=== PATIENT | male | born 1955 | race Caucasian/White ===

== ENCOUNTER → 2018-05-13 08:43 | Outpatient (CLI) | payer OTHER, SELFPAY ==
[2018-05-16 12:21] LABS: AST(SGOT) 29 U/L (15-37); Alanine Aminotransfer ALT/SGPT 39 U/L (16-61); Albumin, Serum 3.6 g/dL (3.2-5.0); Alkaline Phosphatase 75 U/L (45-117); Anion Gap 8 (5-15); BUN 18 mg/dL (7-18); Calcium,Total 8.7 mg/dL (8.5-10.1); Chloride 108 mmol/L (98-107); Cholesterol 159 mg/dL (200); EST Glomerular Filtration Rate 80 mL/min (>60); Est Glom Filt Rate - Afr Amer 97 mL/min (>60); Globulin 3.6 g/dL (2.2-4.2); Glucose 92 mg/dL (74-106); High Density Lipoprotein 58 mg/dL; PSA,Total - Annual Screen 1.67 ng/mL (0.00-4.00); Potassium 4.3 mmol/L (3.5-5.1); Protein, Total 7.2 g/dL (6.4-8.2); Sodium Level 141 mmol/L (136-145); Triglycerides 84 mg/dL; Very Low Density Lipoprotein 17 mg/dL (5-40)
--- OUTSIDE RECORDS SUMMARY | 2018-07-06 10:07 | XMS RPT_ITS ---
:1955 Author Organization [facility] Care Team Providers Name Role Phone Brendon Epperson Attending Unavailable Brendon Epperson Primary Care Unavailable PROBLEMS PROBLEMS DATE TYPE CONDITION / CODE ATTENDING STATUS SOURCE 05/13/2018 Unknown Z00.00 - Brendon Epperson Active Zoë Encounter for [facility] medical Repository examination without abnormal findings / Z00.00(ICD-10) PROCEDURES PROCEDURES No Procedure Records FoundRESULTS RESULTS COMPREHENSIVE METABOLIC Collected: 05/16/2018 Status: F Source: ZOË PROFIL 9:06 AM [facility] HOSPITAL REPOSITORY TYPE CODE TESTS RESULT OUT OF RANGE REFERENCE UNITS LAB L501.0100 74-106 mg/dL Normal GLU 92 Result Comment: Please note revised GLUCOSE reference range effective 2017. LAB L501.1000 7-18 mg/dL Normal BUN 18 LAB L501.1100 0.70-1.30 mg/dL Normal CREAT,SERUM 1.00 Result Comment: The validity of the calculated GFR AND GFRAA in patients over 70 years has not been determined. Clinical correlation is essential. LAB L501.1110 >60 mL/min Normal EST GFR 80 Result Comment: Non- GFR Calc LAB L501.1115 >60 mL/min Normal EST GFR - AA 97 Result Comment: GFR Calc LAB L501.1300 10-20 RATIO Normal BUN/CRE 18.0 LAB L501.1500 6.4-8.2 g/dL T Normal PROT 7.2 LAB L501.1800 3.2-5.0 g/dL Normal ALB 3.6 LAB L501.1950 2.2-4.2 g/dL Normal GLOB 3.6 LAB L501.2000 0.9-2.4 RATIO Normal A/G 1.0 LAB L501.2200 8.5-10.1 mg/dL CA Normal 8.7 LAB L501.4100 15-37 U/L Normal AST 29 LAB L501.4305 45-117 U/L Normal ALK P 75 LAB L501.4405 16-61 U/L Normal ALT 39 LAB L501.4600 0.20-1.00 mg/dL T Normal BILI 0.80 LAB L501.5300 136-145 mmol/L NA Normal 141 LAB L501.5600 3.5-5.1 mmol/L K Normal 4.3 LAB L501.5900 98-107 mmol/L High CL 108 LAB L501.6100 21.0-32.0 mmol/L Normal CO2 25.0 LAB L501.6200 5-15 Normal GAP 8 Performed By: #### L500.4050, L500.4100, L501.9910 #### [facility] [address], [place], [id number] LIPID PROFILE Collected: 05/16/2018 Status: F Source: [place] 9:06 AM [facility] REPOSITORY TYPE CODE TESTS RESULT OUT OF RANGE REFERENCE UNITS LAB L501.4900 200 mg/dL Normal CHOL 159 Result Comment: <200 mg/dL Desirable 200-240 mg/dL Borderline >240 mg/dL High Risk LAB L501.5000 mg/dL Normal TRIG 84 Result Comment: The drugs N-Acetylcysteine and Metamizole may falsely depress this assay. Serum Triglycerides Reference Interval Normal <150 mg/dL Borderline high 150 - 199 mg/dL High 200 - 499 mg/dL Very High > or = 500 mg/dL LAB L501.6400 mg/dL Normal HDL 58 Result Comment: The drugs N-Acetylcysteine and Metamizole may falsely depress this assay. Reference Range HDL <40 mg/dL Low HDL Cholesterol HDL >or= 60 mg/dL High HDL Cholesterol LAB L501.6500 0-130 mg/dL Normal LDL 84 LAB L501.6600 5-40 mg/dL Normal VLDL 17 Performed By: #### L500.4050, L500.4100, L501.9910 #### [facility] [address] [facility]. [place], [place], [id number] PSA,TOTAL - ANNUAL Collected: 05/16/2018 Status: F Source: ZOË SCREEN 9:06 AM [facility] REPOSITORY TYPE CODE TESTS RESULT OUT OF RANGE REFERENCE UNITS LAB L501.9910 0.00-4.00 ng/mL Normal PSA,TOT 1.67 SCREEN Result Comment: This test was performed using the TPSA assay method for the [employer] chemistry system. Values obtained with different assay methods cannot be used interchangably. When changing PSA assays in the course of monitoring a patient, additional sequential testing should be carried out to confirm baseline values. Performed By: #### L500.4050, L500.4100, L501.9910 #### [facility] [address] [place], [address] ALLERGIES ALLERGIES DATE TYPE / CODE NAME / CODE REACTION SEVERITY SOURCE 01/22/2017 Drug No Known Unknown [facility] Allergy/4160 Allergies/F00 Hospital [address](SNOMED [id number](RXNOR Repository CT) M) ENCOUNTERS ENCOUNTERS ADMIT/DISCHARGE ACCOUNT ADMITTING ENCOUNTER LOCATION SOURCE NUMBER CLASS 05/13/2018 [id number] Ambulatory Zoë Zoë 9 [facility] ing:BFHLAB Repository PAYERS PAYERS ENCOUNTER GUARANTOR PAYER SUBSCRIBER SOURCE 05/13/2018 Elliott Chauhan Primary Elliott Moralesoster [id number] Insurance:[employer]ULTCAREPol [facility]: [id number] [address] [id number] Repository [place], [place] Date:[id number] [address]Hxz: [phone], [place] [phone] ([place]) [phone]: 05/13/2018 Secondary NOT GIVENUNK [place] Insurance:SELF PAY [facility] Number: Effective Repository Date:2018-05-13
== END ==
PROVIDERS: Family Provider Family Medicine; PCP Family Medicine; Visit Provider Family Medicine
DX: Z00.00 Encounter for general adult medical examination without abnormal findings (principal)
CPT/HCPCS: 36415; 80053; 80061; 84153; G0103

== ENCOUNTER → 2018-08-26 11:54 | Outpatient (CLI) | payer OTHER, SELFPAY ==
[2017-02-21 16:17] VITALS: BMI 26.6
--- NOTE | 2018-08-26 11:58 | RAD_ITS ---
STUDY: X-RAY - ABDOMEN/PELVIS REASON FOR EXAM: Male, 63 years old. Left upper quadrant pain x 2 weeks. TECHNIQUE: Two AP supine views of the abdomen and pelvis. COMPARISON: None. FINDINGS: Normal visualized lung bases. There is a nonspecific pattern of gas in nondistended segments of small bowel and colon. Gas and fecal material noted in the rectal vault. There is no demonstrated free abdominal air. The visualized liver, spleen and kidneys are grossly normal in size and morphology. Clusters of metal coil densities suggesting prior herniorrhaphy project over the periphery of the right lower quadrant. Clusters of surgical clips that may be related to prior vasectomy project over the base of the scrotum. There are diffuse degenerative changes of the visualized spine and a thoracolumbar S-shaped scoliosis. RAD/Abdomen Single View IMPRESSION: 1. Nonspecific bowel gas pattern. No free gas. 2. Possible prior right inguinal herniorrhaphy and bilateral vasectomies. Correlation with surgical history needed. Electronically Signed: Sohan Stone MD at 16:14 EDT , Service support ,
[2018-08-26 12:01] LABS: Bacteria 0 SEEN /hpf (None Seen); Mucous, Urine 0 SEEN /hpf (<or=2+); Red Blood Cells-Urine 0 SEEN /hpf (0-5); Squamous Epithelial Cells - UA 0 SEEN /hpf (0-5); White Blood Cells 0 SEEN /hpf (0-5)
[2018-08-26 13:56] LABS: Color, Urine Yellow (Yellow); Glucose, Dipstick Normal (Normal); Ketone-Dipstick Negative (Negative); Leukocyte Esterase-Dipstick Negative /ul (Negative); Nitrite-Dipstick Negative (Negative); Occult Blood-Urine Negative /ul (Negative); Protein-Dipstick Negative (Negative); Specific Gravity, Urine 1.015 (1.002-1.030); Urine Bilirubin Dipstick Negative (Negative); Urine Clarity Clear (Clear); Urine Urobilinogen Normal (Normal)
[2018-08-26 14:02] LABS: Absolute Lymphocyte Count 2.02 X10^3/ul (0.83-4.51); Absolute Neutrophil Count 4.5 X10^3/uL (2.0-7.7); Basophil# 0.03 X10^3/uL; Basophil% 0.4 % (0-1); Eosinophil# 0.22 X10^3/uL; Eosinophils% 3.1 % (0-5); Hematocrit 45.4 % (40-54); Hemoglobin 15.3 g/dl (13.0-16.5); Lymphocyte # 2.02 X10^3/ul (4.0); Lymphocyte % 28.3 % (19-41); Mean Corp Hgb Conc 33.7 g/gl (32-36); Mean Corpuscular Hgb 30.8 pg (27.0-32.0); Mean Corpuscular Volume 91.5 fL (80-94); Mean Platelet Vol. 9.3 fl (6.2-12.0); Monocyte# 0.39 X10^3/uL; Monocyte% 5.5 % (0-10); Neutrophil # 4.47 X10^3/uL (2.7-7.7); Neutrophil % 62.6 % (47-70); Platelet Count 273 K/mm3 (150-450); RBC Distribution Width CV 12.4 % (11.6-14.6); RBC Distribution Width SD 40.7 fl (35.1-43.9); Red Blood Count 4.96 M/mm3 (4.6-6.2); White Blood Count 7.1 K/mm3 (4.4-11.0)
[2018-08-26 14:06] LABS: POSITIVE COUNT NO; POSITIVE DIFFERENTIAL NO; POSITIVE MORPHOLOGY NO
[2018-08-26 14:15] LABS: ALB/GLOB Ratio 1.1 RATIO (0.9-2.4); AST(SGOT) 24 U/L (15-37); Alanine Aminotransfer ALT/SGPT 30 U/L (16-61); Albumin, Serum 3.9 g/dL (3.2-5.0); Alkaline Phosphatase 73 U/L (45-117); Anion Gap 6 (5-15); BUN 23 mg/dL (7-18); BUN/Creat Ratio 23.2 RATIO (10-20); CRP < 2.90 mg/L (0.0-3.0); Calcium,Total 8.8 mg/dL (8.5-10.1); Chloride 107 mmol/L (98-107); Creatinine, Serum 0.99 mg/dL (0.70-1.30); EST Glomerular Filtration Rate 81 mL/min (>60); Est Glom Filt Rate - Afr Amer 98 mL/min (>60); Globulin 3.5 g/dL (2.2-4.2); Glucose 97 mg/dL (74-106); Potassium 4.2 mmol/L (3.5-5.1); Protein, Total 7.4 g/dL (6.4-8.2); Sodium Level 140 mmol/L (136-145)
== END ==
PROVIDERS: Family Provider Family Medicine; PCP Family Medicine; Referring Provider Family Medicine; Visit Provider Family Medicine
DX: R10.12 Left upper quadrant pain (principal)
CPT/HCPCS: 36415; 74018; 80053; 81001; 85025; 86140

== ENCOUNTER → 2019-05-28 08:30 | Outpatient (CLI) | payer OTHER, SELFPAY ==
[2019-05-28 13:03] LABS: Cholesterol 128 mg/dL (200); High Density Lipoprotein 51 mg/dL; PSA,Total - Annual Screen 2.02 ng/mL (0.00-4.00); Triglycerides 69 mg/dL; Very Low Density Lipoprotein 14 mg/dL (5-40)
== END ==
PROVIDERS: Family Provider Family Medicine; PCP Family Medicine; Visit Provider Family Medicine
DX: Z00.00 Encounter for general adult medical examination without abnormal findings (principal); Z12.5 Encounter for screening for malignant neoplasm of prostate
CPT/HCPCS: 36415; 80061; 84153; G0103

== ENCOUNTER → 2020-04-21 09:46 | Outpatient (CLI) | payer MEDICARE, SELFPAY ==
[2020-04-21 12:15] LABS: Absolute Lymphocyte Count 1.57 X10^3/uL (0.83-4.51); Absolute Neutrophil Count 3.9 X10^3/uL (2.0-7.7); Basophil# 0.04 X10^3/uL; Basophil% 0.7 % (0-1); Eosinophil# 0.23 X10^3/uL; Eosinophils% 3.8 % (0-5); Hematocrit 41.9 % (40-54); Hemoglobin 13.8 g/dL (13.0-16.5); Lymphocyte # 1.57 X10^3/ul (4.0); Mean Corp Hgb Conc 32.9 g/dL (32-36); Mean Corpuscular Hgb 30.9 pg (27.0-32.0); Mean Corpuscular Volume 93.7 fL (80-94); Mean Platelet Vol. 9.8 fl (6.2-12.0); Monocyte# 0.34 X10^3/uL; Monocyte% 5.6 % (0-10); NRBC Flagged by Analyzer 0 % (0-5); Neutrophil # 3.86 X10^3/uL (2.7-7.7); Neutrophil % 63.7 % (47-70); Platelet Count 229 K/mm3 (150-450); RBC Distribution Width CV 12.8 % (11.6-14.6); RBC Distribution Width SD 43.8 fl (35.1-43.9); Red Blood Count 4.47 M/mm3 (4.6-6.2); White Blood Count 6.1 K/mm3 (4.4-11.0)
[2020-04-21 13:02] LABS: ALB/GLOB Ratio 1.1 RATIO (0.9-2.4); AST(SGOT) 33 U/L (15-37); Alanine Aminotransfer ALT/SGPT 35 U/L (16-61); Albumin, Serum 3.7 g/dL (3.2-5.0); Alkaline Phosphatase 72 U/L (45-117); Anion Gap 6 (5-15); BUN 17 mg/dL (7-18); BUN/Creat Ratio 19.6 RATIO (10-20); Calcium,Total 8.6 mg/dL (8.5-10.1); Chloride 107 mmol/L (98-107); Creatinine, Serum 0.87 mg/dL (0.70-1.30); EST Glomerular Filtration Rate 94 mL/min (>60); Est Glom Filt Rate - Afr Amer 114 mL/min (>60); Globulin 3.3 g/dL (2.2-4.2); Glucose 91 mg/dL (74-106); PSA,Total - Annual Screen 1.87 ng/mL (0.00-4.00); Potassium 4.4 mmol/L (3.5-5.1); Sodium Level 140 mmol/L (136-145)
== END ==
PROVIDERS: PCP Family Medicine; Visit Provider Family Medicine
DX: Z00.01 Encounter for general adult medical examination with abnormal findings (principal); Z12.5 Encounter for screening for malignant neoplasm of prostate; R10.2 Pelvic and perineal pain
CPT/HCPCS: 36415; 80053; 84153; 85025; G0103

== ENCOUNTER 2022-04-12 22:42 | Emergency (ER) | payer MEDICARE, SELFPAY ==
[2022-04-12 22:42] VITALS: BP 128/101; PULSE 70; RESP 15; TEMP 36.6; O2SAT 93; BMI 25.1
--- NOTE | 2022-04-12 23:17 | EX.ED.GUMALE ---
HPI History of Present Illness Chief Complaint: Complaint Informant: patient Pain Onset: Today (Suprapubic discomfort like bladder is full) Context: Gradual Onset Timing: Continuous Current Severity: Moderate Maximum Severity: Moderate Narrative Narrative: Patient had a laparoscopic herniorrhaphy today, he has been unable to urinate since the surgery despite drinking plenty of fluid. Had this happen after his surgery in the past. He denies any hematuria or being on any anticoagulants. [facility] Medical History (Updated 04/13/22 @ 00:[address] Orestes Johnson MD) Hyperlipidemia Home Medications atorvastatin 20 mg tablet 20 mg PO QHS 01/22/17 [History Last Taken Unknown] multivitamin (Daily Multiple tablet) 1 ea PO DAILY 01/22/17 [History Last Taken Unknown] acetaminophen 500 mg tablet 1,000 mg PO Q8 ##90 02/22/17 [Rx Last Taken Unknown] aspirin 325 mg tablet 325 mg PO BIDCM ##30 02/22/17 [Rx Last Taken Unknown] famotidine 20 mg tablet 20 mg PO DAILY ##30 02/22/17 [Rx Last Taken Unknown] oxycodone 5 mg tablet 5 - 10 mg PO Q4H PRN PRN Pain ##56 02/22/17 [Rx Last Taken Unknown] sennosides 8.6 mg-docusate sodium 50 mg tablet (Stool Softener-Stimulant Laxative) 2 tab PO BID ##20 02/22/17 [Rx Last Taken Unknown] Allergy/AdvReac Type Severity Reaction Status Date / Time No Known Allergies Allergy Verified 04/12/22 22:45 Surgical History S/P herniorrhaphy Social History Smoking Status: Never smoker ROS ROS ED Constitutional Constitutional ED: Denies chills or fever(s) Eyes Eyes: Denies change in vision or diplopia ENT ENT ED: Denies rhinorrhea or sore throat Cardiovascular Cardiovascular: Denies chest pain or palpitations Respiratory/Chest Respiratory/Chest: Denies cough or dyspnea Gastrointestinal Gastrointestinal: Reports abdominal pain; Denies diarrhea, nausea or vomiting Genitourinary Genitourinary ED: Reports as per HPI and other Details: Urinary retention ; Denies dysuria or hematuria Musculoskeletal Musculoskeletal: Denies back pain or neck pain Integumentary Denies abscess or rash Neurologic Neurologic: Denies headache(s), paresthesias or weakness Psychiatric Psychiatric: Denies anxiety or suicidal thoughts EXAM Physical Exam Const Vital Signs: 04/12/22 22:42 Temperature 97.9 F Temperature Source Temporal Pulse Rate 70 Respiratory Rate 15 Blood Pressure 128/101 H Blood Pressure Mean 110 Pulse Ox 93 Oxygen Delivery Method Room Air Positive well nourished and well developed General Appearance ED: well developed and NAD HEENT Reports moist mucous membranes normocephalic and atraumatic Eyes PERRL and EOMs intact bilaterally Neck full ROM and supple Resp normal respiratory effort GI GI Narrative: Suprapubic tenderness mild with associated localized distention. Postoperative laparoscopic dressings in place, no signs of infection around them, minimal postoperative tenderness. Auscultation: normoactive bowel sounds Palpation: soft no CVA tenderness Narrative: Normal penis, no blood at the meatus. Back/Spine no CVA tenderness General Back: other FROM Extremity normal to inspection General Extremety ED: Negative for edema General Extremity: Negative for edema Neuro oriented x3, CN's II-XII intact bilaterally and no sensory deficits noted Sensorium / Orientation: awake and alert Motor Exam: strength 5/5 throughout Skin no rashes or lesions noted and no wounds MDM MDM MDM Narrative Medical decision making narrative: [place] catheter was placed, patient had about a liter of transparent yellow urine, no blood, felt much better on reevaluation. Patient was amenable to keeping this in with a leg bag and following up with his surgeon. Discharge Plan Triage Chief Complaint: Complaint ED Provider: Orestes Johnson Dx/Rx/DC Orders Clinical Impression: Postoperative urinary retention Instructions: ED Urinary Retention, Male Prescriptions: No Action multivitamin [Daily Multiple] 1 EACH tablet 1 ea PO DAILY atorvastatin 20 MG tablet 20 mg PO QHS aspirin 325 MG tablet 325 mg PO BIDCM Qty: 30 0RF sennosides-docusate sodium [Stool Softener-Stimulant Laxat] 1 TABLET tablet 2 tab PO BID Qty: 20 0RF Rx Instructions: Take until first bowel movement, then as needed acetaminophen 500 MG tablet 1,000 mg PO Q8 Qty: 90 0RF famotidine 20 MG tablet 20 mg PO DAILY Qty: 30 0RF oxycodone 5 MG tablet 5 - 10 mg PO Q4H PRN PRN (Reason: Pain) Qty: 56 0RF Primary Care Provider: Brendon Epperson Referrals: Arnie Ford MD [Med Staff - Active Staff] - 2 Days (Call for appointment for follow-up, unless he refers you to someone else for this issue) Brendon Epperson DO [Primary Care Provider] - Disposition Disposition: Home, Self Care
[2022-04-12] MEDS: Lidocaine Jelly 2% 20 ML Syringe (URO-JET) 1 APPLIC TOPICAL (23:39)
== END 2022-04-13 02:10 | disposition home or self-care (01) ==
PROVIDERS: Emergency Provider Emergency Medicine; PCP Family Medicine; Visit Provider Emergency Medicine
DX: R33.8 Other retention of urine (principal); E78.5 Hyperlipidemia, unspecified; Z98.890 Other specified postprocedural states
CPT/HCPCS: 51702; 99283

== ENCOUNTER → 2022-06-30 | Outpatient (CLI) | payer MEDICARE, SELFPAY ==
[2022-06-30 18:18] LABS: Absolute Lymphocyte Count 1.91 X10^3/uL (0.83-4.51); Absolute Neutrophil Count 4.3 X10^3/uL (2.0-7.7); Basophil# 0.05 X10^3/uL; Basophil% 0.7 % (0-1); Eosinophil# 0.24 X10^3/uL; Eosinophils% 3.5 % (0-5); Hematocrit 44.6 % (40-54); Lymphocyte # 1.91 X10^3/ul (0.83-4.51); Lymphocyte % 27.5 % (19-41); Mean Corp Hgb Conc 33.6 g/dL (32-36); Mean Corpuscular Hgb 31.1 pg (27.0-32.0); Mean Corpuscular Volume 92.3 fL (80-94); Mean Platelet Vol. 9.3 fl (6.2-12.0); Monocyte# 0.47 X10^3/uL; Monocyte% 6.8 % (0-10); NRBC Flagged by Analyzer 0 % (0-5); Neutrophil # 4.26 X10^3/uL (2.7-7.7); Neutrophil % 61.4 % (47-70); Platelet Count 252 K/mm3 (150-450); RBC Distribution Width SD 40.8 fl (35.1-43.9); Red Blood Count 4.83 M/mm3 (4.6-6.2); White Blood Count 6.9 K/mm3 (4.4-11.0)
[2022-06-30 18:32] LABS: ALB/GLOB Ratio 1.2 RATIO (0.9-2.4); AST(SGOT) 26 U/L (15-37); Alanine Aminotransfer ALT/SGPT 37 U/L (16-61); Albumin, Serum 3.8 g/dL (3.2-5.0); Alkaline Phosphatase 66 U/L (45-117); Anion Gap 9 (5-15); BUN 20 mg/dL (7-18); Chloride 105 mmol/L (98-107); Cholesterol 134 mg/dL (200); Creatinine, Serum 0.95 mg/dL (0.70-1.30); EST Glomerular Filtration Rate 84 mL/min (>60); Est Glom Filt Rate - Afr Amer 101 mL/min (>60); Globulin 3.3 g/dL (2.2-4.2); Glucose 86 mg/dL (74-106); High Density Lipoprotein 75 mg/dL; Potassium 4.3 mmol/L (3.5-5.1); Protein, Total 7.1 g/dL (6.4-8.2); Sodium Level 141 mmol/L (136-145); Triglycerides 41 mg/dL; Very Low Density Lipoprotein 8 mg/dL (5-40)
== END | disposition home or self-care (01) ==
LOC: BFHLAB 14:58
PROVIDERS: PCP Family Medicine; Visit Provider Family Medicine
DX: Z00.00 Encounter for general adult medical examination without abnormal findings (principal); Z12.5 Encounter for screening for malignant neoplasm of prostate; E78.5 Hyperlipidemia, unspecified; K59.02 Outlet dysfunction constipation
CPT/HCPCS: 36415; 80053; 80061; 84153; 85025; G0103

== ENCOUNTER → 2023-08-07 | Outpatient (CLI) | payer MEDICARE, SELFPAY ==
[2023-08-07 15:30] LABS: Absolute Neutrophil Count 4.1 X10^3/uL (2.0-7.7); Basophil# 0.03 X10^3/uL; Basophil% 0.5 % (0-1); Eosinophil# 0.18 X10^3/uL; Eosinophils% 2.8 % (0-5); Hematocrit 42.2 % (40-54); Hemoglobin 14.2 g/dL (13.0-16.5); Lymphocyte % 27.6 % (19-41); Mean Corp Hgb Conc 33.6 g/dL (32-36); Mean Corpuscular Hgb 31.4 pg (27.0-32.0); Mean Corpuscular Volume 93.4 fL (80-94); Mean Platelet Vol. 9.5 fl (6.2-12.0); Monocyte# 0.44 X10^3/uL; Monocyte% 6.7 % (0-10); NRBC Flagged by Analyzer 0 % (0-5); Neutrophil # 4.07 X10^3/uL (2.7-7.7); Neutrophil % 62.2 % (47-70); Platelet Count 233 K/mm3 (150-450); RBC Distribution Width CV 12.2 % (11.6-14.6); RBC Distribution Width SD 41.8 fl (35.1-43.9); Red Blood Count 4.52 M/mm3 (4.6-6.2); White Blood Count 6.5 K/mm3 (4.4-11.0)
[2023-08-07 16:41] LABS: ALB/GLOB Ratio 1.2 RATIO (0.9-2.4); AST(SGOT) 26 U/L (15-37); Alanine Aminotransfer ALT/SGPT 24 U/L (16-61); Albumin, Serum 3.8 g/dL (3.2-5.0); Alkaline Phosphatase 67 U/L (45-117); Anion Gap 6 (5-15); BUN 16 mg/dL (7-18); BUN/Creat Ratio 17.8 RATIO (10-20); Calcium,Total 9.1 mg/dL (8.5-10.1); Chloride 109 mmol/L (98-107); Cholesterol 125 mg/dL (200); EST Glomerular Filtration Rate 89 mL/min (>60); Est Glom Filt Rate - Afr Amer 108 mL/min (>60); Globulin 3.1 g/dL (2.2-4.2); Glucose 91 mg/dL (74-106); High Density Lipoprotein 64 mg/dL; PSA,Total - Annual Screen 3.09 ng/mL (0.00-4.00); Potassium 4.2 mmol/L (3.5-5.1); Protein, Total 6.9 g/dL (6.4-8.2); Sodium Level 141 mmol/L (136-145); Triglycerides 48 mg/dL; Very Low Density Lipoprotein 10 mg/dL (5-40)
--- OUTSIDE RECORDS SUMMARY | 2023-08-07 22:26 | XMS RPT_ITS | CCD ---
Author Name Unknown Address [address] [place] [address] Organization [facility] Care Team Providers Care Rectifying Operator Name Role Phone KIET JEFFREY Attending Unavailable PHYSICIAN, NOT RECORDED Primary Care Unavaila ble Zhou FLORES, Rajiv A Primary Care Provider ARNIE FORD Admitting Unavailable ARNIE FORD Attending Unavailable ZHOU, RAJIV A Primary Care Unavailable SHEKHAR METZGER Attending Unavailable ZHOU, RAJIV A Primary Care Unavailable ZHOU, RAJIV A Referring Unavailable ARNIE FORD Attending Unavailable CELINE GOODWIN Primary Care Unavailable SHEKHAR METZGER Attending Unavailable ZHOU, RAJIV A Primary Care Unavailable ARNIE FORD Referring Unavailable ZHOU, RAJIV A Primary Care Unavailable ARNIE FORD Referring Unavailable ARNIE FORD Attending Unavailable ZHOU, RAJIV A Primary Care Unavailable MARKIE BARONE Referring Unavailable Pcp, No Primary Care Provider Unavailabl e Zhou FLORES, Rajiv A Primary Care Provider Medications Completed/Discontinued Medications Medication Drug Class(es) Dates Sig (Normalized) Sig (Original) acetaminophen 325 mg / HYDROcodone bitartrate 5 mg oral tablet (1 source) Opioid Agonist Start: 04-12-2022 take 1 tablet by mouth every six hours as needed for pain HYDROcodone-aceta minophen (NORCO) 5-325 mg per tablet Indications: Left inguinal hernia Take 1 tablet by mouth every 6 hours as needed for pain. 20 tablet 0 04/12/2022 Active Problems Problem Classification Problem Date Documented Date Episodic/Chronic Abdominal hernia (1 source) Unilateral inguinal hernia, without obstruction or gangrene, not specified as recurrent; Translations: [Left inguinal hernia] Onset: 04-12-2022 Episodic Abdominal pain (2 sources) Epigastric pain; Translations: [Epigastric pain] Onset: 09-27-2018 Episodic Disorders of lipid metabolism (4 sources) Mixed hyperlipidemia; Translations: [Mixed hyperlipidemia] Onset: 04-05-2022 Chronic Esophageal disorders (4 sources) Gastroesophageal reflux disease; Translations: [Gastro-esophageal reflux disease without esophagitis] Onset: 04-05-2022 Chronic Other aftercare (1 source) Follow-up status; Translations: [Encounter for other specified aftercare] Episodic Results Test Name Value Interpretation Reference Range Facil ity Vital Signs Date Time Vital Sign Value Performing Clinician Faci lity 04-05-2022 10:35-0400 Body height 176.5 cm Pacc 1 Work Phone: [facility] 04-05-2022 10:35-0400 Body temperature 97.9 [degF] Pacc 1 Work Phone: [facility] 04-05-2022 10:35-0400 Body weight 83.01 kg Pacc 1 Work Phone: [facility] 04-05-2022 10:35-0400 Diastolic blood pressure 78 mm[Hg] Pacc 1 Work Phone: [facility] 04-05-2022 10:35-0400 Heart rate 79 /min Pacc 1 Work Phone: [facility] 04-05-2022 10:35-0400 Respiratory rate 16 /min Pacc 1 Work Phone: [facility] 04-05-2022 10:35-0400 SaO2% (BldA) [Mass fraction] 98 % Pacc 1 Work Phone: [facility] 04-05-2022 10:35-0400 Systolic blood pressure 122 mm[Hg] Pacc 1 Work Phone: [facility] Encounters Encounter Date Encounter Type Care Provider Facility Start: 04-18-2022 End: 04-18-2022 ambulatory SHEKHAR METZGER Facility:[facility] Start: 04-14-2022 End: 04-14-2022 ambulatory RAJIV EPPERSON Facility:[facility] Start: 04-14-2022 End: 04-14-2022 Patient encounter procedure Arnie Ford MD Work Phone: General Surgery Plan of Treatment Date Care Activity Detail Author Start: 04-05-2025 DIABETES SCREEN DIABETES SCREEN [facility] Start: 02-09-2022 Influenza vaccination INFLUENZA (#1) [facility] Start: 06-11-2021 ADVANCE DIRECTIVE DISCUSSION ADVANCE DIRECTIVE DISCUSSION [facility] Start: 06-11-2021 DEPRESSION ASSESSMENT DEPRESSION ASS ESSMENT [facility] Start: 06-05-2021 COVID-19 VACCINE (4 - Booster for Moderna series) COVID-19 VACCINE (4 - Booster for Moderna series) [facility] Start: 2020 PNEUMOCOCCAL: 65+ (1 - PCV) PNEUMOCOCCAL: 65+ (1 - PCV) [facility] Start: 2010 PROSTATE CANCER SCRE ENING DISCUSSION PROSTATE CANCER SCREENING DISCUSSION [facility] Start: 2005 SHINGRIX VACCINE (1 of 2) SHINGRIX V ACCINE (1 of 2) [facility] Start: 2000 COLOGUARD (FIT-DNA) COLOGUARD (FIT-D NA) [facility] Start: 2000 Colonoscopy COLONOSCOPY [facility] Start: 2000 COLORECTAL CANCER SCREENING COLORECTAL CANCER SCREENING [facility] Start: [address] COLONOGRAPHY [facility] Start: 2000 FECAL OCCULT BLOOD FECAL OCCULT BLOO D [facility] Start: 2000 SIGMOIDOSCOPY SIGMOIDOSCOPY [facility] Start: 1990 LIPID SCREEN LIPID SCREEN [facility] Start: 1974 Urine microalbumin profile DTAP,TDAP ,TD (1 - Tdap) [facility] Start: 1973 HEPATITIS C SCREENING HEPATITIS C SC INDYNING [facility] Start: 1955 COVID-19 VACCINE (#1) COVID-19 VACCI NE (#1) [facility] Payers Date Payer Category Payer Medicare [facility] AARP MEDICAR E [facility] AAR MEDICARE O [id number] 2021-Present [phone] [address] [address] [place] [address] O [id number] 2021 Medicare [id number] 2018 Unknown [id number] 1955 Unknown [id number] Social History Date Type Detail Facility Start: 12-20-2021 End: 03-31-2022 Tobacco smoking status NHIS Never smoked tobacco [facility] Start: 12-20-2021 End: 03-31-2022 Tobacco use and exposure Smokeless tobacco non-user [facility] Start: 12-20-2021 End: 04-05-2022 Alcohol intake Current non-drinker of alcohol (finding) [facility] Start: 1955 Sex Assigned At Not on file C [facility] Start: 03-26-2022 End: 04-12-2022 Exposure to SARS-CoV-2 (event) Not sure [facility] Medical Equipment Procedure Code Equipment Code Equipment Origin al Text Equipment Identifier Dates Mesh Progrip Boni Pet [id number] Surgical Self Fixate Flat Sheet Hernia Sterile - [id number] Start: 04-12-2022 Clinical Notes 12-20-2021 to 04-18-2022 Arnie Ford MD - 04/18/2022 10:29 AM EST Note Date & Type Note Facility 04-18-2022 Note HNO ID: [id number] Author: Arnie Ford MD Service: ? Author Type: Physician Type: Progress Notes Filed: 04/18/2022 10:31 AM Note Text: Subjective: Patient is status post a laparoscopic left inguinal hernia back in 04/12/2022. He went into urinary retention went to the emergency department subsequently had Noyola catheter placed and presents today just for recheck. Subjective:There were no vitals taken for this visit. Catheters in place dressings are dry I do not feel any large hematoma. Assessment: Aftercare Plan: Patient has had catheters in the past he is going to cut his catheter and remove it this coming Sunday. [facility] 04-18-2022 Note HNO ID: [id number] Author: Shekhar Metzger PA-C Service: ? Author Type: Physician Operating Room Technician Type: Progress Notes Filed: 04/18/2022 2:13 PM Note Text: FOLLOW UP VISIT - HERNIA NAME: Elliott Robin [facility] NO.: [id number] DATE OF SERVICE: 04/18/2022 : 1955 REFERRING PHYSICIAN: Rajiv Epperson DO Elliott is a patient I am following with Dr. Ford for a left inguinal hernia. Dr. Ford performed a laparoscopic left inguinal hernia repair with mesh on 04/12/22. The patient did experience post-op urinary retention and required catheter placement, which has since been removed. He currently notes no major complaints. his appetite has been good. he denies fever, chills or abdominal pain. he does note some minimal incisional discomfort. he notes no bulges at the operative site VITALS: Weight 82.1 kg (181 lb). General: patient is alert, cooperative, pleasant and in no acute distress On examination, the abdomen is benign. The incisions are healing well without signs of infection or inflammation. There are no signs of recurrent hernia formation. Assessment IMPRESSION: status post laparoscopic left inguinal hernia repair with mesh PLAN: If the patient notes any problems, he should contact me immediately. he may return to his regular activities as tolerated, with the exception of no lifting greater than 20 pounds for the next 7 weeks. If patient feels the urge to cough or sneeze, they should brace against the repair site with their hands or a pillow. Diagnoses: (Z98.890, Z87.19) S/P hernia repair (primary encounter diagnosis) (R33.9) Urinary retention Return to Clinic: The patient is instructed to follow-up with me as needed. Patient verbalized understanding of all above and agreed with the plan. Shekhar Metzger PA-C [facility] 04-18-2022 History of Present illness Narrative Subjective: Patient is status post a laparoscopic left inguinal hernia back in 04/12/2022. He went into urinary retention went to the emergency department subsequently had Noyola catheter placed and presents today just for recheck. Subjective:There were no vitals taken for this visit. Catheters in place dressings are dry I do not feel any large hematoma. Assessment: Aftercare Plan: Patient has had catheters in the past he is going to cut his catheter and remove it this coming Sunday. documented in this encounter [facility] 04-12-2022 Note HNO ID: [id number] Author: Eugenio Calero RN Service: Nursing Author Type: Registered Nurse Type: Nursing Progress Note Filed: 04/12/2022 12:54 PM Note Text: Up to bathroom , gait steady , voided q/s returned to [facility] documented as of this encounter (statuses as of 04/18/2022) [facility]11-02-2022 History of Past illness Narrative* Problem Noted Date Resolved Date Left inguinal hernia 04/12/2022 04/12/2022 documented as of this encounter (statuses as of 04/30/2022) [facility]11-02-2022 NoteHNO ID: [id number] Author: ALY Allison Service: Anesthesiology Author Type: Student Type: Anesthesia Procedure Notes Filed: 04/12/2022 9:37 AM Note Text: ANESTHESIOLOGY PROCEDURE NOTE Airway General Information Procedure Start Time/Medication Administration: 04/12/2022 9:31 AM Patient location during procedure: OR Timeout Performed Pre-procedure: timeout performed Consent Obtained: Yes Patient identity confirmed: arm band and patient Staffing SRNA: ALY Allison Performed by: ALY Indications and Patient Condition Indications for airway management: anesthesia Preoxygenated: yes anesthesia circuit Patient position: sniffing Method: sleep Difficult Mask: No Final Airway Details Final airway type: endotracheal airway Final Endotracheal Airway: ETT Cuffed: yes Successful intubation technique: direct laryngoscopy Endotracheal tube insertion site: oral Blade: Aziza Blade size: #4 ETT size (mm): 7.5 Placement verified by: capnometry Cormack-Lehane Classification: grade I - full view of glottis Number of attempts at approach: 1 Airway not difficult SIGNATURE: ALY Allison PATIENT NAME: Elliott Robin DATE: April 12, 2022 TIME: 9:36 AM CSN: [id number] Instructions* Patient Instructions* Markie Barone APRN.STOCK CONTROLLER - 04/05/2022 10:42 AM EDT PATIENT PREOPERATIVE INSTRUCTIONS No ref. provider found has scheduled you for your procedure at this surgery center: [facility]: [phone] -- [address] [facility] [address]. Please read below carefully for your personalized instructions. Dietary Restrictions: - No solid food after midnight. - You may have 12 ounces of clear liquids (water, clear juices such as apple juice or gatorade, carbonated beverages, clear tea, black coffee, jello) until 2 hours before scheduled arrival at facility. No red/purple coloring and no creamer/sugar Medications: Unless instructed differently below, stay on all of your medications until your surgery. Approved medications to take the morning of surgery with a sip of water: Atorvastatin, Omeprazole If you start any new medications after today's visit, please contact the surgeon's office. Blood Thinning Medications: - Stop NSAIDS (Ibuprofen, Advil, Aleve, Motrin, Celebrex, Mobic, etc.) 7 days before surgery, as directed by your surgeon. - Stop Aspirin 7 days before surgery, as directed by your surgeon. - Stop Vitamin E, ALL multi-vitamins, herbals and dietary supplements 7 days before surgery. - You may take Tylenol (Acetaminophen) or any of your pain medications that do not contain aspirin or NSAIDS as needed. Important Reminders: - If you use CPAP/BIPAP, bring the machine with you to the surgery center. - If you are prescribed inhalers for breathing, continue using them. - Candy, mints, and tobacco products are NOT permitted the morning of surgery. - Hearing aids, dentures and glasses may be worn the morning of surgery. - NO jewelry, body piercings, makeup, hairpins or contacts are to be worn the day of surgery. If you develop symptoms such as a fever, cold, or flu, or have other changes to your health within TWO DAYS of scheduled surgery or the morning of surgery, please contact the surgery center above. Personal Belongings: -Please have photo ID and insurance cards. -If you do not have a copy of advance directives on file with us, please bring a copy with you on the day of surgery. - Leave ALL valuables and money at home or with family members. For Outpatient Procedures: - YOU MUST HAVE A RESPONSIBLE PRESIDENT TAKE YOU HOME. A BENEFITS CONSULTING ANALYST OR AIRCRAFT CAPTAIN CANNOT BE MADE A RESPONSIBLE PRESIDENT. - We recommend that a responsible person stays with you overnight to take care of you. - You cannot stay in a hotel alone after outpatient surgery. You will not be permitted to have yoursurgery, if you do not have someone to take care of you. Arrival Time for Surgery: - The Surgery Center or hospital where you are having surgery will call the afternoon before surgery (or Sunday for Sunday surgery) with a scheduled arrival time. - If you have not heard by 4 pm, please contact the surgery center above. Please be aware that emergency situations arise, which may delay or change your surgical time. If this happens, we will notify you as soon as possible and regret any inconvenience. If you already have an Advance Directive, please fax a copy to [phone] or email to for it to be added to your chart. If you do not have an Advance Directive, you can find the appropriate form and more information at [email or web address]. We recommend that youcomplete the Advance Directive form found on the website and bring it with you the day of your surgery. It can be witnessed and scanned into your chart that day. Markie Barone APRN.CNP [facility] History and physical note * Markie Barone APRN.CNP - 04/05/2022 10:41 AM EDT HISTORY AND PHYSICAL EXAMINATION SERVICE DATE: 04/05/2022 SERVICE TIME: 10:56 AM PRIMARY CARE PHYSICIAN: Rajiv Epperson DO REASON FOR VISIT: Elliott Robin is a 67 year old male who is scheduled for Procedure(s): LAPAROSCOPY SURGICAL REPAIR INITIAL INGUINAL HERNIA W/ MESH (Left) at the request of @[email or web address]@for consultation. My final recommendation will be communicated back to the requesting physician by way of shared medical record or letter. Subjective The patient has the following: ACTIVE PROBLEM LIST Gerd (Gastroesophageal Reflux Disease) Mixed Hyperlipidemia COVID-19 Immunization Status Overdue - COVID-19 VACCINE (1) Overdue - never done No completion, postpone, frequency change, or communication history exists for this topic. CHIEF COMPLAINT: Pre-op exam HPI: RADHA is a 67 yo seen for PAC due to scheduled above surgery because of LIH 03/31/2022 Shekhar Metzger PA-C HPI: Elliott is a 67 year old male I am following with Dr. Ford for left inguinal hernia. Patientwas evaluated by Dr. Ford on 12/20/21. Per office note at that time: Elliott is a 66 year old male with a complaint of a bulge in his left inguinal region. The patient notes discomfort in this area with lifting and straining. The symptoms have maintained, over the pastfew month. The patient notes no symptoms of bowel obstruction and denies nausea or vomiting. The patient was seen by his primary care physician who felt the patient has a hernia. Elliott was referred for evaluation and treatment. The patient is being seen by me today at the request of Dr. Epperson for my opinion and advice regarding Left inguinal hernia (primary encounter diagnosis). Dr. Ford offered laparoscopic left inguinal hernia repair. Patient wished to postpone surgery until early April. Patient presents to update H&P for upcoming scheduled hernia repair. The patient denies any significant change to his overall health since his last visit. His past medical history, past surgical history, medications and allergies are up to date as of this visit. REVIEW OF SYSTEMS: General: No weight loss, malaise or fevers. Neurological: No history of TIA's, stroke, GLOBAL SAFETY OFFICER tumor, impaired sensorium, hemiplegia, paraplegia orquadraplegia. No neurological symptoms or problems. Respiratory: No history of current cough or dyspnea, or pneumonia in the past 6 weeks. No history of respiratory/pulmonary symptoms or problems. Cardiovascular: Positive for: hyperlipidemia Negative for: arrhythmia, atrial fibrillation, CAD, chest pain, CHF, congenital heart defect, DVT/PE, hypertension, recent AL, murmur/valvular heart disease, open heart surgery and valve surgery. GI: Positive for: GERD Negative for: abdominal pain, dysphagia, irritable bowel syndrome, inflammatory bowel disease, liver disease, nausea, pancreatitis, vomiting and ETOH >2 drinks/day. : No history of dysuria, frequency or incontinence, stones or chronic kidney disease. No difficulty urinating, nocturia > 1 time per night or hematuria. Endocrine: No history of diabetes. Has not taken steroids within the past 30 days. No history of endocrinological symptoms or problems. Hematology: No history of bleeding or clotting disorder. Patient is not taking anti-coagulation or platelet medications. No history of hematological symptoms or problems. Oncology: No history of CA metastasis, chemo within 30 days, or radiotherapy within 90 days. No history of oncological symptoms or problems. Psych: No history of psychiatric symptoms or problems. Musculoskeletal: Negative for joint pain or swelling, back pain or muscle pain. Skin: Negative for lesions, rash and itching. PAST MEDICAL HISTORY Diagnosis Date Degeneration of intervertebral disc, site unspecified High cholesterol Inguinal hernia without mention of obstruction or gangrene, unilateral or unspecified, (not specified as recurrent) right PAST SURGICAL HISTORY Procedure Laterality Date LAPAROSCOPY SURG RPR INITIAL INGUINAL HERNIA 03/10/2008 PAST SURGICAL HISTORY OF 06/11/1989 sacral FAMILY HISTORY Problem Relation Age of Onset Cancer Father bladder Hypertension Father Diabetes Mother Hypertension Mother Lipids Mother Arthritis Sister steo Cancer Maternal Grandfather Cancer Maternal Aunt Social History Tobacco Use Smoking status: Never Smokeless tobacco: Never Vaping Use Vaping Use: Never used Substance Use Topics Alcohol use: No Drug use: No Prior to Admission medications as of 04/05/22 1044 Medication Sig Last Dose Taking atorvastatin (LIPITOR) 20 mg tablet Take 20 mg by mouth once daily. Taking Yes omeprazole (PRILOSEC) 20 mg capsule Take 20 mg by mouth once daily. Taking Yes MULTIVITAMIN W-MINERALS/LUTEIN (CENTRUM SILVER ORAL) Take by mouth once daily. Taking Yes aspirin 81 mg cap Take 81 mg by mouth once daily. No medication comments found. ALLERGIES No Known Allergies Objective PHYSICAL EXAM: General: alert and oriented (x3) and healthy appearance. Pertinent negatives noted - not distressed. Skin: normal color, no rash or lesions. HEENT: EOM intact and pupils equal round. Pertinent negatives noted - no carotid bruit. Cardiovascular: regular rate and rhythm, normal S1 and S2, no rub, murmurs, or gallop. Respiratory: normal breath sounds, no wheezes or crackles. No chest wall deformity or tenderness. Abdomen: soft. Pertinent negatives noted - not tender. Extremities: no deformity, no edema or tenderness, no joint swelling or clubbing. Neurological: normal cognition and motor skills. Gait normal. No weakness or sensory deficit. PAIN ASSESSMENT: VITALS: BP 122/78 Pulse 79 Temp (Src) 97.9 (Temporal) Resp 16 Ht 5' 9.5 (1.77m) Wt 183 lb (83.0kg) SpO2 98% BMI 26.65 kg/(m^2). Diagnostic tests reviewed for today's visit: Lab Value Units Date High Low HB No results within date range. HCT No results within date range. WBC No results within date range. PLT No results within date range. NA No results within date range. K No results within date range. GLUC No results within date range. BUN No results within date range. CREAT No results within date range. PTSEC No results within date range. INR No results within date range. APTT No results within date range. ALT No results within date range. AST No results within date range. TBILI No results within date range. TSH No results within date range. Lab Value Units Date High Low HCGQT No results within date range. UHCG No results within date range. HCG, BODY* No results within date range. Lab Value Units Date High Low ABORHD No results within date range. ABSCREEN No results within date range. No results found for: HBA1C No results found for this or any previous visit (from the past 8760 hour(s)). No results found for this or any previous visit (from the past 40108 hour(s)). Assessment GERD (gastroesophageal reflux disease) Assessment: controlled on rx Mixed hyperlipidemia Assessment: c/w statin Olivares Activity Status Index: METS: Climb a flight of stairs or walk up a hill (5.50 METs) DASI Score: 5.5 Patient denies any chest pain or undue shortness of breath with the above physical activity. Clinical Frailty Scale: 2. Well STOP-Bang Score: Patient over 50 years old Male patient Denies snoring loudly Denies feeling tired, fatigued, or sleepy during the daytime Has not been observed to stop breathing or choking/gasping during sleep Denies having high blood pressure BMI less than or equal to 35 kg/m^2 Does not have a large neck STOP-Bang Score: 2 [id number] Score: Age: 65-74 Sex: male CHF history: No Hypertension history: No Stroke/TIA/thromboembolism history: No Vascular disease history: No Diabetes history: No [id number] Score: 1 ARISCAT Score: Age: 51-80 Preoperative SpO2: >=96% Respiratory infection in the last month: No Preoperative anemia: No Surgical incision: peripheral Duration of surgery: <2 hrs Emergency procedure: No ARISCAT Score: 3 ASA Class: 2 ANESTHESIA FINDINGS: Intubation History: No history of difficult intubation Significant Anesthesia Considerations: none Airway History: No history of difficult airway I - PHYSICAL EVALUATION AIRWAYTracheostomy tube not present Mallampati: I. TM distance: >3 FB. Neck ROM: full ROM without neurological symptoms. Mouth opening: adequate. Short neck: no. Thick neck: no DENTAL Dental findings: teeth intact. II - ANESTHESIA PLAN ASA Score: 2 Anesthetic Plan: other Anesthetic plan additional comments: *PACC/TCI - anesthesia choice. Informed Consent Anesthetic risks, benefits, alternatives, personnel and consent discussed: yes. Patient / Responsible Republican agrees to proceed: yes Patient / Surrogate agrees to blood products: blood products not planned Prepared for Surgery: optimally prepared for surgery, pending [see comment]. labs CONSULTS: Patient does not require consults for optimization at this time Planned Anesthetic: other anesthesia choice The Following Tests/Procedures Have Been Initiated: Orders Placed This Encounter >CBC + AUTO DIFF Standing Status: Future Standing Expiration Date: 06/05/2022 >BMP Standing Status: Future Standing Expiration Date: 06/05/2022 Instructions Given to Patient: Instructions located in the after visit summary. Patient given verbal and written preop instructions and voices comprehension and compliance. SIGNATURE: Markie Barone APRN.CNP PATIENT NAME: Elliott Robin DATE: April 05, 2022 TIME: 10:41 AM PAGER/CONTACT #: [facility] NoteHNO ID: [id number] Author: Shekhar Metzger PA-C Service: ? Author Type: Physician Operating Room Technician Type: Progress Notes Filed: 04/04/2022 4:20 PM Note Text: HISTORY AND PHYSICAL Elliott Robin 1955 REFERRING PHYSICIAN: Self CHIEF COMPLAINT: Follow Up (Update H AND P for hernia surgery) HPI: Elliott is a 67 year old male I am following with Dr. Ford for left inguinal hernia. Patient was evaluated by Dr. Ford on 12/20/21. Per office note at that time: Elliott is a 66 year old male with a complaint of a bulge in his left inguinal region. The patient notes discomfort in this area with lifting and straining. The symptoms have maintained, over the past few month. The patient notes no symptoms of bowel obstruction and denies nausea or vomiting. The patient was seen by his primary care physician who felt the patient has a hernia. Elliott was referred for evaluation and treatment. The patient is being seen by me today at the request of Dr. Epperson for my opinion and advice regarding Left inguinal hernia (primary encounter diagnosis). Dr. Ford offered laparoscopic left inguinal hernia repair. Patient wished to postpone surgery until early April. Patient presents to update [facility] for upcoming scheduled hernia repair. The patient denies any significant change to his overall health since his last visit. His past medical history, past surgical history, medications and allergies are up to date as of this visit. PAST MEDICAL HISTORY Diagnosis Date Degeneration of intervertebral disc, site unspecified High cholesterol Inguinal hernia without mention of obstruction or gangrene, unilateral or unspecified, (not specified as recurrent) right PAST SURGICAL HISTORY Procedure Laterality Date LAPAROSCOPY SURG RPR INITIAL INGUINAL HERNIA 03/10/2008 PAST SURGICAL HISTORY OF 06/11/1989 sacral Current Outpatient Medications Medication Sig aspirin 81 mg cap Take 81 mg by mouth once daily. atorvastatin (LIPITOR) 20 mg tablet Take 20 mg by mouth once daily. omeprazole (PRILOSEC) 20 mg capsule Take 20 mg by mouth once daily. MULTIVITAMIN W-MINERALS/LUTEIN (CENTRUM SILVER ORAL) Take by mouth once daily. Fish Oil-DHA-EPA 1,200-144-216 mg cap Take by mouth. (Patient not taking: Reported on 03/31/2022) No current facility-administered medications for this visit. ALLERGIES: Patient has no known allergies. PERSONAL HISTORY: Social History Tobacco Use Smoking status: Never Smokeless tobacco: Never Vaping Use Vaping Use: Never used Substance Use Topics Alcohol use: No Drug use: No FAMILY HISTORY: FAMILY HISTORY Problem Relation Age of Onset Cancer Father bladder Hypertension Father Diabetes Mother Hypertension Mother Lipids Mother Arthritis Sister steo Cancer Maternal Grandfather Cancer Maternal Aunt REVIEW OF SYMPTOMS: The review of systems data was entered by the nurse and reviewed by me Nursing Notes: Chandrika Cortes LPN 03/31/2022 10:38 AM Signed REVIEW OF SYSTEMS: 03/31/2022 1038am General: The patient denies fatigue, denies weight loss, denies weight gain, denies feeling hot, and denies feelings of cold. Eyes: The patient denies glaucoma, denies eye injury/surgery, wears glasses or contacts. Ear/Nose/Throat: The patient denies allergies, denies hayfever, denies ear infections, and denies bloody noses. Cardiovascular: The patient denies chest pain, denies heart disease, denies high blood pressure,denies cardiac stent, denies prior heart attack, denies irregular heart beat, NOTES high cholesterol, denies poor circulation, denies heart failure, other cardiac issues, denies claudication, denies cold feet, denies peripheral arterial stent. Respiratory: The patient denies tuberculosis, denies pneumonia, denies frequent cough, denies pulmonary embolism, denies shortness of breath, and denies coughing up blood. Gastrointestinal: The patient denies difficulty swallowing, denies acid reflux, denies ulcers, denies vomiting, denies jaundice/hepatitis, denies gallbladder problems, denies black or tarry stools, denies hemorrhoids, denies bleeding from rectum, denies diverticulitis, denies constipation, denies diarrhea, denies loss of stool control, and denies hernias. Kidney/Bladder: The patient denies kidney stones, denies urine infections, and denies bloody urine. Skin: The patient denies a history of skin cancer, denies bleeding/changing moles, and denies a history of skin rash. Neurologic: The patient denies a history of epilepsy/convulsions, denies headaches, denies head/spinal injuries, and denies stroke/TIA. Psychiatric: The patient denies psychiatric medications, denies depression, and denies voices, denies substance abuse. Endocrine: The patient denies thyroid disorders, denies diabetes, and denies hormonal problems. Hematologic: The patient denies a history of bruising, denies bleeding, and denies anemia, denies blood clots. (more content not included)... [facility] [place]10-07-[facility]22 Miscellaneous Notes* Telephone Encounter - Niurka Liang - 03/17/2022 8:41 AM EDT Patient scheduled 11/[address] [place] [address] Ford for his hernia surgery 03/31 for his update H & P with Shekhar Metzger And 04/18 for his post op appointment Niurka Liang * Telephone Encounter - Sandi Franklyn Pss - 03/13/2022 9:08 AM EDT Patient called requesting to have hernia surgery early April. Please call patient and advise. [phone] documented in this encounterSelect [facility]22 NoteHNO ID: [id number] Author: Arnie Ford MD Service: ? Author Type: Physician Type: Progress Notes Filed: 12/20/2021 12:59 PM Note Text: HISTORY AND PHYSICAL Elliott Robin 1955 REFERRING PHYSICIAN: Rajiv Epperson DO CHIEF COMPLAINT: Consult (Left Inguinal Hernia) HPI: Elliott is a 66 year old male with a complaint of a bulge in his left inguinal region. The patient notes discomfort in this area with lifting and straining. The symptoms have maintained, over the past few month. The patient notes no symptoms of bowel obstruction and denies nausea or vomiting. The patient was seen by his primary care physician who felt the patient has a hernia. Elliott was referred for evaluation and treatment. The patient is being seen by me today at the request of Dr. Epperson for my opinion and advice regarding Left inguinal hernia (primary encounter diagnosis). PAST MEDICAL HISTORY Diagnosis Date - Degeneration of intervertebral disc, site unspecified - High cholesterol - Inguinal hernia without mention of obstruction or gangrene, unilateral or unspecified, (not specified as recurrent) right PAST SURGICAL HISTORY Procedure Laterality Date - LAPAROSCOPY SURG RPR INITIAL INGUINAL HERNIA 03/10/2008 - PAST SURGICAL HISTORY OF 06/11/1989 sacral Current Outpatient Medications Medication Sig - atorvastatin (LIPITOR) 20 mg tablet - omeprazole (PRILOSEC) 20 mg capsule - MULTIVITAMIN W-MINERALS/LUTEIN (CENTRUM SILVER ORAL) Take by mouth. - Fish Oil-DHA-EPA (FISH OIL) 1,200-144-216 mg ORAL Cap Take by mouth. No current facility-administered medications for this visit. ALLERGIES: Patient has no known allergies. PERSONAL HISTORY: Social History Tobacco Use - Smoking status: Never Smoker - Smokeless tobacco: Never Used Substance Use Topics - Alcohol use: No - Drug use: No FAMILY HISTORY: FAMILY HISTORY Problem Relation Age of Onset - Cancer Father bladder - Hypertension Father - Diabetes Mother - Hypertension Mother - Lipids Mother - Arthritis Sister steo - Cancer Maternal Grandfather - Cancer Maternal Aunt REVIEW OF SYMPTOMS: The review of systems data was entered by the nurse and reviewed by nc Nursing Notes: Concepcion Houghz 12/20/2021 12:50 PM Signed REVIEW OF SYSTEMS: General: The patient denies fatigue, denies weight loss, denies weight gain, denies feeling hot, and denies feelings of cold. Eyes: The patient denies glaucoma, denies eye injury/surgery, wears glasses or contacts. Ear/Nose/Throat: The patient denies allergies, denies hayfever, denies ear infections, and denies bloody noses. Cardiovascular: The patient denies chest pain, denies heart disease, denies high blood pressure,denies cardiac stent, denies prior heart attack, denies irregular heart beat, NOTES high cholesterol, denies poor circulation, denies heart failure, other cardiac issues, denies claudication, denies cold feet, denies peripheral arterial stent. Respiratory: The patient denies tuberculosis, denies pneumonia, denies frequent cough, denies pulmonary embolism, denies shortness of breath, and denies coughing up blood. Gastrointestinal: The patient denies difficulty swallowing, denies acid reflux, denies ulcers, denies vomiting, denies jaundice/hepatitis, denies gallbladder problems, denies black or tarry stools, denies hemorrhoids, denies bleeding from rectum, denies diverticulitis, denies constipation, denies diarrhea, denies loss of stool control, and denies hernias. Kidney/Bladder: The patient denies kidney stones, denies urine infections, and denies bloody urine. Skin: The patient denies a history of skin cancer, denies bleeding/changing moles, and denies a history of skin rash. Neurologic: The patient denies a history of epilepsy/convulsions, denies headaches, denies head/spinal injuries, and denies stroke/TIA. Psychiatric: The patient denies psychiatric medications, denies depression, and denies voices, denies substance abuse. Endocrine: The patient denies thyroid disorders, denies diabetes, and denies hormonal problems. Hematologic: The patient denies a history of bruising, denies bleeding, and denies anemia, denies blood clots. Infections: The patient denies a history of measles and mumps, denies rheumatic fever, and denies sexually transmitted diseases. Musculoskeletal: The patient denies back pain/injury, NOTES back problems, denies sciatica, NOTES knee/foot trouble, denies arthritis, or NOTES gout. When was patient's last Mammogram screening? N/A Last Colonoscopy: 2019 Concepcion Phan PHYSICAL EXAMINATION: General: The patient is 66 year old male, well nourished, well hydrated in no acute distress. The patient is oriented to time, place, and person. VITALS: Blood pressure 116/74, pulse 80, temperature 36.4 ?C (97.6 ?F), height 175.3 cm (5' 9 ), weight 81.2 kg (179 lb), SpO2 97 %. Body mass index is 26.43 kg/m?. HEENT: Normal (more content not included)...[facility] Pre-operative examination- Primary Preoperative examination, unspecified Gastroesophageal reflux disease, unspecified whether esophagitis present Mixed hyperlipidemia Left inguinal hernia Inguinal hernia without mention of obstruction or gangrene, unilateral or unspecified, (not specified as recurrent) documented in this encounter [facility] Diagnosis Aftercare- Primary Unspecified aftercare documented in this encounter [facility] Summary Purpose Family History No Family History Records FoundNo Family History Records FoundNo Family History Records Found Advance Directives No Advanced Directives Records FoundNo Advanced Directives Records FoundNo Advanced Directives Records Found Additional Source Comments (unrecognized sect ion and content) No Status Records FoundNo Status Records FoundNo Status Records Found INFORMATION SOURCE (unrecogn ized section and content) DATE CREATED AUTHOR AUTHOR'S ORGANIZ ATION 04/13/2022 [facility] DATE CREATED AUTHOR AUTHOR'S ORGANIZ ATION 04/30/2022 [facility] [place] Source Comments (unrecognize d section and content) In the event this informatio n is protected by the Federal Confidentiality of Alcohol and Drug Abuse Patient Records regulations: The Federal rules restrict any use of the information to criminally investigate or prosecute any alcohol or drug abuse patient.[facility] the event this information is protected by the Federal Confidentiality of Alcohol and Drug Abuse Patient Records regulations: The Federal rules restrict any use of the information to criminally investigate or prosecute any alcohol or drug abuse patient.[facility] the event this information is protected by the Federal Confidentiality of Alcohol and Drug Abuse Patient Records regulations: The Federal rules restrict any use of the information to criminally investigate or prosecute any alcohol or drug abuse patient.[facility] Reason for Visit (unrecogniz ed section and content) Reason Comments 04/12 hernia repair w/ mesh moss Care Teams (unrecognized sec tion and content) Rectifying Operator Relationship Specialty Start Date End Date Rajiv Epperson DO [address] [place] [address] PCP - General Family Medicine 03/30/22 Rectifying Operator Relationship Specialty Start Date End Date Pcp, No PCP - General 12/24/21 03/29/22 Rajiv Epperson DO [address] [place] [address] PCP - General Family Medicine 03/30/22 FOR RECORDS PERTAINING TO PATIENTS WHO ARE OR HAVE BEEN ENROLLED IN A CHEMICAL DEPENDENCY/SUBSTANCEABUSE PROGRAM, SOME INFORMATION MAY BE OMITTED. This clinical summary was aggregated from multiple sources. Caution should be exercised in using it in the provision of clinical care. This summary normalizes information from multiple sources, and as a consequence, information in this document may materially change the coding, format and clinical context of patient data. In addition, data may be omitted in some cases. CLINICAL DECISIONS SHOULD BE BASED ON THE PRIMARY CLINICAL RECORDS. [facility]. provides no warranty or guarantee of the accuracy or completeness of information in this document.
== END | disposition home or self-care (01) ==
LOC: BFHLAB 13:38
PROVIDERS: PCP Family Medicine; Visit Provider Family Medicine
DX: Z00.00 Encounter for general adult medical examination without abnormal findings (principal); Z12.5 Encounter for screening for malignant neoplasm of prostate; E78.5 Hyperlipidemia, unspecified
CPT/HCPCS: 36415; 80053; 80061; 84153; 85025; G0103

== ENCOUNTER → 2024-10-28 | Outpatient (CLI) | payer MEDICARE, SELFPAY ==
[2024-10-28 15:41] LABS: Absolute Lymphocyte Count 1.52 X10^3/uL (0.83-4.51); Absolute Neutrophil Count 2.6 X10^3/uL (2.0-7.7); Basophil# 0.03 X10^3/uL; Basophil% 0.6 % (0-1); Eosinophil# 0.16 X10^3/uL; Eosinophils% 3.4 % (0-5); Hematocrit 40.9 % (40-54); Lymphocyte # 1.52 X10^3/ul (0.83-4.51); Lymphocyte % 32.2 % (19-41); Mean Corp Hgb Conc 34.2 g/dL (32-36); Mean Corpuscular Hgb 31.3 pg (27.0-32.0); Mean Corpuscular Volume 91.5 fL (80-94); Mean Platelet Vol. 9.5 fl (6.2-12.0); Monocyte# 0.37 X10^3/uL; Monocyte% 7.8 % (0-10); NRBC Flagged by Analyzer 0 % (0-5); Neutrophil # 2.63 X10^3/uL (2.7-7.7); Neutrophil % 55.8 % (47-70); Platelet Count 229 K/mm3 (150-450); RBC Distribution Width CV 12.1 % (11.6-14.6); RBC Distribution Width SD 40.7 fl (35.1-43.9); Red Blood Count 4.47 M/mm3 (4.6-6.2); White Blood Count 4.7 K/mm3 (4.4-11.0)
[2024-10-28 16:22] LABS: ALB/GLOB Ratio 1.6 RATIO (0.9-2.4); AST(SGOT) 32 U/L (<=37); Alanine Aminotransfer ALT/SGPT 21 U/L (<=46); Albumin, Serum 4.1 g/dL (3.4-4.8); Alkaline Phosphatase 68 U/L (40-129); Anion Gap 11 (5-15); BUN 17 mg/dL (4-19); BUN/Creat Ratio 19.2 RATIO (10-20); Calcium,Total 9.5 mg/dL (7.6-11.0); Carbon Dioxide 23.5 mmol/L (21.0-32.0); Chloride 106 mmol/L (98-108); Cholesterol 140 mg/dL (<=200); Creatinine, Serum 0.87 mg/dL (0.70-1.20); EST Glomerular Filtration Rate 93 (>60); Globulin 2.6 g/dL (2.2-4.2); Glucose 91 mg/dL (70-99); High Density Lipoprotein 69 mg/dL; Low Density Lipoprotein Calc. 64 mg/dL; PSA,Total - Annual Screen 2.95 ng/mL (0.02-4.00); Potassium 4.3 mmol/L (3.3-5.1); Protein, Total 6.8 g/dL (5.9-8.4); Sodium Level 141 mmol/L (133-145); Total Bilirubin 0.99 mg/dL (0.00-1.30); Triglycerides 39 mg/dL; Very Low Density Lipoprotein 8 mg/dL (5-40); cholesterol:hdl ratio screen 2.04
== END | disposition home or self-care (01) ==
LOC: MTLAB 11:10
PROVIDERS: PCP Family Medicine; Referring Provider Family Medicine; Visit Provider Family Medicine
DX: E78.5 Hyperlipidemia, unspecified (principal); Z12.5 Encounter for screening for malignant neoplasm of prostate; R17 Unspecified jaundice; D64.9 Anemia, unspecified
CPT/HCPCS: 36415; 80053; 80061; 84153; 85025; G0103